=== PATIENT | male | born 1965 | race Hispanic/Latino ===

== ENCOUNTER 2022-05-25 00:52 | Emergency (ER) | payer BC ==
[2022-05-25] MEDS ORDERED: EPINEPHrine 1 MG/10 ML Abboject SYRINGE ONE (01:01)
== END 2022-05-25 01:11 | disposition expired ==
LOC: ERS 00:52
DX: I46.9 Cardiac arrest, cause unspecified (principal)
CPT/HCPCS: 92950; J0171